=== PATIENT | female | born 1950 | race Caucasian/White ===

== ENCOUNTER 2016-07-14 14:43 | Inpatient (IN) | payer OTHER, MEDICARE ==
[~2016-07-14] VITALS: Ht 160 cm; Wt 72.0 kg
[~2016-07-14 14:43] MED LIST: FLUO-1 PO; LORA0.5T PO
[2016-07-14 15:18] VITALS: BP 148/98; PULSE 68; RESP 15; TEMP 97.6; O2SAT 95
[2016-07-14] MEDS ORDERED: CITA40TA4 PO (15:26)
[2016-07-14] MEDS ORDERED: LORA-373 PO (15:26)
--- NOTE | 2016-07-14 15:44 | PD ---
HPI Chief Complaint: Medical Clearance Time Seen by Provider: 15:42 Travel History International Travel<30 days: No Contact w/Intl Traveler<30days: No Traveled to known affect area: No History of Present Illness HPI Patient is a 66-year-old female who is brought into the emergency Department under Arizmendi act for possible suicidal ideations. Patient states that she just learned that her estranged in [place] this morning, she was outside of her home openly grieving, screaming, crying when the police came. She was told by the police that she had to be taken in for evaluation. Patient denies any suicidal or homicidal ideations stating that she is a Pentec[employer]al and suicide is against her yazdanism. Patient endorses drinking 4 shots of Phiilp Win today and smoking marijuana. She denies any physical complaints at this time. PFSH Past Medical History Anxiety: Yes Depression: Yes Cancer: Yes (colon cancer) Cardiovascular Problems: Yes COPD: Yes Past Surgical History Abdominal Surgery: Yes (COLECTOMY) Hysterectomy: Yes Neurologic Surgery: Yes (BACK ) Social History Alcohol Use: Yes (OCCASIONALLY) Tobacco Use: Yes (1 PPD) Substance Use: Yes (MARIJUANA) Allergies-Medications (Allergen,Severity, Reaction): Coded Allergies: Codeine (Verified Allergy, Unknown, 07/14/16) Contrast Media (Verified Allergy, Unknown, 07/14/16) Penicillin (Verified Allergy, Unknown, 07/14/16) Reported Meds & Prescriptions Reported Meds & Active Scripts Active Reported Citalopram (Citalopram Hydrobromide) 40 Mg Tab 40 Mg PO DAILY Lorazepam 0.5 Mg Tab 0.5 Mg PO BID PRN Review of Systems Except as stated in HPI: all other systems reviewed are Neg Psychiatric: Positive: Depression, Substance Abuse Physical Exam Narrative GENERAL: Thin, well-developed, alert elderly female. Resting comfortably in no acute distress, appears older than stated age. SKIN: Warm and dry. HEAD: Atraumatic. Normocephalic. EYES: Pupils equal and round. No scleral icterus. No injection or drainage. ENT: No nasal bleeding or discharge. Mucous membranes pink and moist. NECK: Trachea midline. No JVD. CARDIOVASCULAR: Regular rate and rhythm. No murmur appreciated. RESPIRATORY: No accessory muscle use. Clear to auscultation. Scattered expiratory wheezing. No retractions, no nasal flaring. GASTROINTESTINAL: Abdomen soft, non-tender, nondistended. Hepatic and splenic margins not palpable. MUSCULOSKELETAL: No obvious deformities. No clubbing. No cyanosis. No edema. NEUROLOGICAL: Awake and alert. No obvious cranial nerve deficits. Motor grossly within normal limits. Normal speech. PSYCHIATRIC: Depressed mood and affect Data Data Last Documented VS Vital Signs Date Time Temp Pulse Resp B/P Pulse Ox O2 Delivery O2 Flow Rate FiO2 07/14/16 15:18 97.6 68 15 148/98 95 Orders Complete Blood Count With Diff (07/14/16 15:13) Comprehensive Metabolic Panel (07/14/16 15:13) Urinalysis - C+S If Indicated (07/14/16 15:13) Drug Screen, Random Urine (07/14/16 15:13) Alcohol (Ethanol) (07/14/16 15:13) Psych Screen (07/14/16 15:13) Diet Regular Basic (07/14/16 Dinner) Labs Laboratory Tests Test 07/14/16 07/14/16 15:11 15:33 Urine Color YELLOW Urine Turbidity CLEAR Urine pH 5.5 Urine Specific [place] 1.013 Urine Protein 30 mg/dL Urine Glucose (UA) NEG mg/dL Urine Ketones NEG mg/dL Urine Occult Blood NEG Urine Nitrite NEG Urine Bilirubin NEG Urine Urobilinogen LESS THAN 2.0 MG/DL Urine Leukocyte Esterase NEG Urine WBC 1 /hpf Urine Squamous Epithelial 1 /hpf Cells Urine Mucus FEW /lpf Microscopic Urinalysis Comment CULT NOT INDICATED Urine Opiates Screen NEG Urine Barbiturates Screen NEG Urine Amphetamines Screen NEG Urine Benzodiazepines Screen NEG Urine Cocaine Screen NEG Urine Cannabinoids Screen POS White Blood Count 7.1 TH/MM3 Red Blood Count 5.39 MIL/MM3 Hemoglobin 15.3 GM/DL Hematocrit 46.6 % Mean Corpuscular Volume 86.3 FL Mean Corpuscular Hemoglobin 28.3 PG Mean Corpuscular Hemoglobin 32.8 % Concent Red Cell Distribution Width 14.2 % Platelet Count 257 TH/MM3 Mean Platelet Volume 9.0 FL Neutrophils (%) (Auto) 51.2 % Lymphocytes (%) (Auto) 39.9 % Monocytes (%) (Auto) 6.2 % Eosinophils (%) (Auto) 1.9 % Basophils (%) (Auto) 0.8 % Neutrophils # (Auto) 3.6 TH/MM3 Lymphocytes # (Auto) 2.8 TH/MM3 Monocytes # (Auto) 0.4 TH/MM3 Eosinophils # (Auto) 0.1 TH/MM3 Basophils # (Auto) 0.1 TH/MM3 CBC Comment DIFF FINAL Differential Comment Sodium Level 142 MEQ/L Potassium Level 3.5 MEQ/L Chloride Level 107 MEQ/L Carbon Dioxide Level 25.0 MEQ/L Anion Gap 10 MEQ/L Blood Urea Nitrogen 15 MG/DL Creatinine 0.64 MG/DL Estimat Glomerular Filtration 93 ML/MIN Rate Random Glucose 70 MG/DL Calcium Level 8.4 MG/DL Total Bilirubin 0.2 MG/DL Aspartate Amino Transf 15 U/L (AST/SGOT) Alanine Aminotransferase 22 U/L (ALT/SGPT) Alkaline Phosphatase 80 U/L Total Protein 7.4 GM/DL Albumin 3.8 GM/DL Ethyl Alcohol Level 181 MG/DL [facility] Medical Decision Making Medical Screen Exam Complete: Yes Emergency Medical Condition: Yes Interpretation(s) Vital Signs Date Time Temp Pulse Resp B/P Pulse Ox O2 Delivery O2 Flow Rate FiO2 07/14/16 15:18 97.6 68 15 148/98 95 Differential Diagnosis Mood disorder versus substance abuse versus psychosis versus intoxication versus other Narrative Course Patient is a 66-year-old female who was brought into the emergency Department under Arizmendi act. Patient was witnessed screaming and crying in her yard due to the recent of her estranged . She denies any suicidal or homicidal ideations. Patient endorses alcohol use as well as marijuana this morning. CBC is unremarkable, chemistry is unremarkable, tox screen was positive for THC , alcohol level is 181, urinalysis unremarkable. Patient's vital signs are stable. Patient is medically cleared for psychiatric evaluation at this time. Diagnosis Primary Impression: Medical clearance for psychiatric admission Condition: Stable Peace De La Rosa Jul 14, 2016 15:44
[2016-07-14 16:44] LABS: AUTOMATED NEUTROPHIL # 3.6 TH/MM3 (1.8-7.7); BASOPHIL # 0.1 TH/MM3 (0-0.2); BASOPHIL % 0.8 % (0.0-2.0); EOSINOPHIL # 0.1 TH/MM3 (0-0.4); EOSINOPHIL % 1.9 % (0.0-4.0); HEMATOCRIT 46.6 % (35.0-46.0); HEMO FLAGS DIFF FINAL; LYMPH % 39.9 % (9.0-44.0); LYMPHOCYTE # 2.8 TH/MM3 (1.0-4.8); MEAN CELL VOLUME 86.3 FL (80.0-100.0); MEAN CORPUSCULAR HEMOGLOBIN 28.3 PG (27.0-34.0); MEAN CORPUSCULAR HGB CONC 32.8 % (32.0-36.0); MONO % 6.2 % (0.0-8.0); NEUT % 51.2 % (16.0-70.0); PLATELET COUNT 257 TH/MM3 (150-450); RED BLOOD COUNT 5.39 MIL/MM3 (4.00-5.30); RED CELL DISTRIBUTION WIDTH 14.2 % (11.6-17.2); WHITE BLOOD COUNT 7.1 TH/MM3 (4.0-11.0)
[2016-07-14 16:55] LABS: AMPHETAMINE, URINE NEG (NEG); BARBITURATES, URINE NEG (NEG); BLOOD, URINE NEG (NEG); COCAINE, URINE NEG (NEG); COMMENT (UR) CULT NOT INDICATED; CULTURE IF INDICATED CULT NOT INDICATED; GLUCOSE,URINE NEG (NEG); KETONE, URINE NEG (NEG); MUCUS URINE FEW /lpf (OCC); NITRITE,URINE NEG (NEG); PH, URINE 5.5 (5.0-8.5); SQUAMOUS EPITHELIAL CELL URINE 1 /hpf (0-5); URINE COLOR YELLOW (YELLW/STRAW)
[2016-07-14 17:20] LABS: ALKALINE PHOSPHATASE 80 U/L (45-117); ALT (GPT) 22 U/L (10-53); ANION GAP 10 MEQ/L (5-15); AST (GOT) 15 U/L (15-37); BLOOD UREA NITROGEN 15 MG/DL (7-18); CHLORIDE 107 MEQ/L (98-107); GLOMERULAR FILTRATION RATE 93 ML/MIN (>89); POTASSIUM 3.5 MEQ/L (3.5-5.1); SODIUM (NA) 142 MEQ/L (136-145); TOTAL BILIRUBIN ADULT 0.2 MG/DL (0.2-1.0)
[2016-07-14 18:29] VITALS: BP_SYST 100; BP_SYST 188; BP_DIAS 49; BP_DIAS 81; PULSE 92; RESP 20; O2SAT 98
[2016-07-14] MEDS ORDERED: ACETAMINOPHEN 325 MG TAB PO ONE (18:45)
[2016-07-14 19:26] VITALS: BP 93/51; PULSE 92; RESP 18; O2SAT 94
[2016-07-14 20:42] VITALS: BP 122/57; PULSE 96; RESP 18; O2SAT 96
[2016-07-14] MEDS ORDERED: FLUMAZENIL 0.5 MG/5 ML VIAL IV PUSH PRN (21:45)
[2016-07-14] MEDS ORDERED: ALUMINUM/MAGNESIUM/SIMETH 30 ML CUP PO PRN (21:45)
[2016-07-14] MEDS ORDERED: BENZTROPINE MESYLATE 2 MG/2 ML VIAL IM PRN (21:45)
[2016-07-14] MEDS ORDERED: ACETAMINOPHEN 325 MG TAB PO PRN (21:45)
[2016-07-14] MEDS ORDERED: LORazepam 2 MG TAB PO PRN (21:45)
[2016-07-14] MEDS ORDERED: hydrOXYzine HCL 50 MG TAB PO PRN (21:45)
[2016-07-14] MEDS ORDERED: MAGNESIUM HYDROXIDE SUSP 30 ML CUP PO PRN (21:45)
[2016-07-14] MEDS ORDERED: BENZTROPINE MESYLATE 1 MG TAB PO PRN (21:45)
[2016-07-14] MEDS ORDERED: LORazepam 1 MG TAB PO PRN (21:45)
[2016-07-14] MEDS ORDERED: LORazepam 2 MG/ML VIAL IM PRN ×4 (21:45)
[2016-07-14] MEDS ORDERED: diphenhydrAMINE HCL 50 MG CAP PO PRN (21:45)
[2016-07-14 22:00] VITALS: BP 110/67; PULSE 84; RESP 18; O2SAT 93
[2016-07-14 23:20] VITALS: BP 128/72; PULSE 83; RESP 18; TEMP 97.8; O2SAT 94
[2016-07-15 06:31] VITALS: BP 140/71; PULSE 108; RESP 19; TEMP 97.6; O2SAT 94
[2016-07-15 07:43] LABS: LDL CHOLESTEROL 76 MG/DL (0-99)
[2016-07-15] MEDS ORDERED: FOLIC ACID 1 MG TAB PO SCH (09:00)
[2016-07-15] MEDS ORDERED: REMOVE OLD PATCH T-DERMAL SCH (09:00)
[2016-07-15] MEDS ORDERED: CITALOPRAM HYDROBROMIDE 40 MG TAB PO SCH (09:00)
[2016-07-15] MEDS ORDERED: NICOTINE 21 MG/24 HR PATCH T-DERMAL SCH (09:00)
[2016-07-15] MEDS ORDERED: THIAMINE HCL 100 MG TAB PO SCH (09:00)
[2016-07-15] MEDS ORDERED: ACETAMINOPHEN 325 MG TAB PO PRN (10:15)
--- NOTE | 2016-07-15 11:38 | HHI.HP ---
Provisional Diagnosis Admission Date Jul 14, 2016 at 21:42 [place] I. Alcohol abuse with alcohol-induced mood disorder F 10.14, alcohol intoxication f 10.129 Certification of Person's Competence To Provide Express and Informed Consent I have personally examined Micki Corona , a person being served at [facility] on, Jul 15, 2016 11:25. Express and informed consent means consent voluntarily given in writing, by a competent person, after sufficient explanation and disclosure of the subject matter involved to enable the person to make a knowing and willful decision without any element of force, fraud, deceit, duress, or other form of constraint or coercion. This person is 18 years of age or older, is not now known to be incompetent to consent to treatment with a guardian advocate, and does not have a health care surrogate or proxy currently making medical treatment decisions. I have found this person to be one of the following: []x Competent to provide express and informed consent, as defined above, for voluntary admission to this facility and is competent to provide express and informed consent for treatment. He/she has the consistent capacity to make well reasoned, willful, and knowing decisions concerning his or her medical or mental health treatment. The person fully and consistently understands the purpose of the admission for examination/placement and is fully capable of personally exercising all rights assured [place] [] Incompetent to provide express and informed consent to voluntary admission, and this is incompetent to provide express and informed consent to treatment. The person must be transferred to involuntary status and a petition for a guardian advocate filed with the Circuit Court. [] Refusing to provide express and informed consent to voluntary admission but is competent to provide express and informed consent for treatment. The person must be discharged or transferred to involuntary status. Form shall be completed within 24 hours of a person's arrival at the receiving facility and filed in the clinical record of each person: 1. Admitted on a voluntary basis 2. Permitted to provide express and informed consent to his/her own treatment 3. Allowed to transfer from involuntary to voluntary status 4. Prior to permitting a person to consent to his or her own treatment after having been previously found incompetent to consent to treatment. History of Present Illness Capacity: Has Capacity HPI Patient is 66-year-old white female who comes here under Arizmendi act by the [place] [employer] dated 2016 at 2100 hrs. stating Micki is upset over recent deaths of her 2 children and Micki denies being suicidal a neighbor provided sworn statements advising she said she wanted to kill herself. Patient seen and screened in the ED urine toxicology positive for marijuana the blood alcohol level 181. At the present time patient sitting quietly in her room nurse Millie present throughout the session patient acknowledges getting drunk. Was the first episode in a number of months. Patient acknowledges misuse of alcohol on an infrequent no excessive basis. She denies detox or rehabilitation her legal issues related to drinking though she does acknowledge blacking out with that. She states she uses marijuana on a frequent basis. Patient states was grieving over the recent of her estranged out of state. She was notified of the day before by her son of his . This comes on top of the of her granddaughter who she help deliver in a motor vehicle accident her daughter who of drug related issues and a son who of drug related issues. The patient adamantly denies suicidality homicidality voices or visions with this. Patient was screened here number months ago for alcohol-related issues the blood alcohol level of almost 300 on 06/22/16. Patient denies any prior inpatient psychiatric care. Patient is under the care of Dr. Romo locally which she sees on a regular basis does have a good relationship with him a does prescribe her Celexa and Ativan. 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 At the present time patient does not meet Arizmendi criteria. I will lift the Arizmendi act. Allow the patient to be discharged to herself. No Rx by me. She may follow-up with Dr. Romo. Also strong recommendation AA meeting strong recommendation NA meeting strong recommendation voluntary assessment substance abuse through [facility] also strong recommendation for grief counseling perhaps through one of the hospice organizations locally Review of Systems Except as stated in HPI: all other systems reviewed are Neg Past Psych History Psychological trauma history Recent of 2 of her children one granddaughter and her estranged Violence risk - others (6 mos) low Violence risk - self (6 mos) Low Substance Abuse History Drugs/Alcohol past 12 months Active alcoholic marijuana Past Family Social History Coded Allergies: Codeine (Verified Allergy, Unknown, 07/14/16) Contrast Media (Verified Allergy, Unknown, 07/14/16) Penicillin (Verified Allergy, Unknown, 07/14/16) Past Medical History Medically cleared ED Reported Medications Citalopram 40 Mg Tab40 Mg PO DAILY #30 TAB Ref 0 07/14/16 Lorazepam 0.5 Mg Tab0.5 Mg PO BID PRN (ANXIETY) Ref 0 07/14/16 Current Medications Medications (Trade) Dose Ordered Sig/Taco Route Start Time Stop Time Status Last Admin (CeleXA) 40 mg DAILY PO 07/15/16 09:00 07/15/16 09:22 (Benadryl) 50 mg HS PRN PO 07/14/16 21:45 (Tylenol) 650 mg Q4H PRN PO 07/14/16 21:45 07/14/16 23:35 (Milk Of Magnesia Liq) 30 ml DAILY PRN PO 07/14/16 21:45 (Mag-Al Plus Susp Liq) 30 ml Q6H PRN PO 07/14/16 21:45 (Habitrol 21 Mg Patch.24 Hr) 1 patch DAILY T-DERMAL 07/15/16 09:00 (Atarax) 50 mg Q6H PRN PO 07/14/16 21:45 (Cogentin) 1 mg Q12H PRN PO 07/14/16 21:45 (Cogentin Inj) 1 mg Q12H PRN IM 07/14/16 21:45 (Ativan) 1 mg Q4H PRN PO 07/14/16 21:45 (Ativan Inj) 1 mg Q4H PRN IM 07/14/16 21:45 (Ativan) 2 mg Q2H PRN PO 07/14/16 21:45 07/14/16 23:36 (Ativan Inj) 2 mg Q2H PRN IM 07/14/16 21:45 (Ativan Inj) 2 mg Q1H PRN IM 07/14/16 21:45 (Ativan Inj) 2 mg Q15M PRN IM 07/14/16 21:45 Miscellaneous Information 1 DAILY T-DERMAL 07/15/16 09:00 (Vitamin B1) 100 mg DAILY PO 07/15/16 09:00 07/15/16 09:22 (Folate) 1 mg DAILY PO 07/15/16 09:00 07/15/16 09:22 (Tylenol) 650 mg Q4H PRN PO 07/15/16 10:15 Family History Some history substance abuse issues Social History Patient appears to be episodic binge drinker, chronic marijuana user Patient's Strengths (min. 2) Patient verbal intelligence cooperative irritable [facility] Physical Exam Patient seen screen in ED exam reviewed and agreed with vital signs blood pressure 140/71 pulse 1 await respirations 19 Vital Signs Vital Signs Date Time Temp Pulse Resp B/P Pulse Ox O2 Delivery O2 Flow Rate FiO2 07/15/16 06:31 97.6 108 19 140/71 94 07/14/16 22:00 Room Air Mental Status Examination Alert oriented white female poor dentition noted calm cooperative with me with fair eye contact Appearance Somewhat disheveled with poor dentition patient missing for lower central incisors Speech: Unremarkable Orientation: x3 Memory: Unremarkable Thought Process: Logical Thought Content: Unremarkable Hallucination Type: None Attention and Concentration: Good Suicidal Ideation: No Previous Suicide Attempts: No Homicidal Ideation: No Previous Homicide Attempts: No Insight: Fair Judgement: WNL Affect: Other (slight increase range and intensity) Mood: Sad Motor Activity: Normal gait Assessment & Plan Problem List: (1) Alcohol abuse with alcohol-induced mood disorder ICD Code: F10.14 (2) Alcohol intoxication ICD Code: F10.129 Assessment & Plan Estimated LOS: days patient does not meet Arizmendi criteria will lift Arizmendi act allow patient discharged herself. No Rx by me. She may continue her schedule medications per Dr. Jaeger, follow-up with Dr. Jaeger. Refer also to the grief counseling through a local hospice of her choice. Refer also to AA and NA , refer also to [facility] act outpatient substance abuse evaluation Discharge Planning See above Request HC Surrog/Guard Advoc?: No Luis Schrader MD Jul 15, 2016 11:38
--- NOTE | 2016-07-15 11:47 | HHI.DS ---
Psychiatry Discharge Summary Inpatient Psychiatric care?: Yes Advance Directive: Yes Mental Health AdvanceDirective: No (refused) Health Care Proxy: No (refused) Admission Admission Date Jul 14, 2016 at 21:42 Admission Diagnosis: (1) Alcohol abuse with alcohol-induced mood disorder ICD Code: F10.14 (2) Alcohol intoxication ICD Code: F10.129 Brief History Patient is 66-year-old white female who comes here under Arizmendi act by the [facility] [employer] [facility] dated 2016 at 2100 hrs. stating Micki is upset over recent deaths of her 2 children and Micki denies being suicidal a neighbor provided sworn statements advising she said she wanted to kill herself. Patient seen and screened in the ED urine toxicology positive for marijuana the blood alcohol level 181. At the present time patient sitting quietly in her room nurse Millie present throughout the session patient acknowledges getting drunk. Was the first episode in a number of months. Patient acknowledges misuse of alcohol on an infrequent no excessive basis. She denies detox or rehabilitation her legal issues related to drinking though she does acknowledge blacking out with that. She states she uses marijuana on a frequent basis. Patient states was grieving over the recent of her estranged out of state. She was notified of the day before by her son of his . This comes on top of the of her granddaughter who she help deliver in a motor vehicle accident her daughter who of drug related issues and a son who of drug related issues. The patient adamantly denies suicidality homicidality voices or visions with this. Patient was screened here number months ago for alcohol-related issues the blood alcohol level of almost 300 on 06/22/16. Patient denies any prior inpatient psychiatric care. Patient is under the care of Dr. Romo locally which she sees on a regular basis does have a good relationship with him a does prescribe her Celexa and Ativan. 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 At the present time patient does not meet Arizmendi criteria. I will lift the Arizmendi act. Allow the patient to be discharged to herself. No Rx by me. She may follow-up with Dr. Romo. Also strong recommendation AA meeting strong recommendation NA meeting strong recommendation voluntary assessment substance abuse through [facility] also strong recommendation for grief counseling perhaps through one of the hospice organizations locally Tobacco Use In Past 30 Days: 5 or More Cigarettes/Day Alcohol Use: 2-4 Times Per Month Hospital Course Please see dictation under brief history above patient does not be Arizmendi criteria will lift Arizmendi act patient to be discharged to herself no Rx by me follow-up with Dr. Jaeger also referrals to AA/NA, hospice for grief counseling , stroke [facility] act outpatient substance abuse assessment Results Blood Pressure 140 / 71 Vital Signs Date Time Temp Pulse Resp B/P Pulse Ox O2 Delivery O2 Flow Rate FiO2 07/15/16 06:31 97.6 108 19 140/71 94 07/14/16 22:00 Room Air Laboratory Tests Test 07/14/16 07/14/16 15:11 15:33 Urine Protein 30 mg/dL (NEG-TRACE) Urine Mucus FEW /lpf (OCC) Urine Cannabinoids Screen POS (NEG) Red Blood Count 5.39 MIL/MM3 (4.00-5.30) Hematocrit 46.6 % (35.0-46.0) Random Glucose 70 MG/DL (74-106) Calcium Level 8.4 MG/DL (8.5-10.1) Ethyl Alcohol Level 181 MG/DL (0-5) Laboratory Results Test 07/15/16 06:49 Triglycerides Level 89 MG/DL (42-150) Cholesterol Level 147 MG/DL (120-200) LDL Cholesterol 76 MG/DL (0-99) HDL Cholesterol 53.0 MG/DL (40.0-60.0) Summary of Procedures None done Pending results at discharge: No Medications # of Antipsychotic meds at D/C: 0 Approp Antipsych med options 1 - Minimum of three failed multiple trials of monotherapy. 2 - Documented plan to taper to monotherapy due to previous use of multiple meds OR cross-taper in progress at D/C. 3 - Documentation of augmentation of Clozapine. 4 - Justification other than those listed in allowable values 1-3, document here : Discharge Discharge Date: Jul 15, 2016 Discharge Diagnosis: (1) Alcohol abuse with alcohol-induced mood disorder Diagnosis: Principal ICD Code: F10.14 (2) Alcohol intoxication Diagnosis: Secondary ICD Code: F10.129 Mental Status Exam at Disch Alert oriented thin slender slightly disheveled white female she is normal active her mood is dysphoric, affect show slight increase range and intensity. Speech rate and rhythm within normal limits though no formal thought disorders. No auditory or visual hallucinations though delusions. Insight and judgment is fair cognition grossly intact Pt Condition on Discharge: Stable Discharge Disposition: Discharge Home Discharge Instructions Diet Instructions: As Tolerated, No Restrictions Activities you can perform: Regular-No Restrictions Scheduled Appointment: Private Psychiatrist (Dr. Romo) Discharge Time > 30 minutes Discharge/Advance Care Plan Health Problems: (1) Alcohol abuse with alcohol-induced mood disorder (2) Alcohol intoxication Goals to promote your health * To prevent worsening of your condition and complications * To maintain your health at the optimal level Directions to meet your goals Take your medications as prescribed Follow your dietary instruction Follow activity as directed Keep your appointments as scheduled Take your immunizations and boosters as scheduled If your symptoms worsen call your PCP, if no PCP go to Urgent Care Center or Emergency Room For 17/01 questions related to your inpatient stay or results of tests pending at discharge, please contact Dr. Luis Schrader at Smoking is Dangerous to Your Health. Avoid second hand smoking Luis Schrader MD Jul 15, 2016 11:47
[2016-07-15 16:00] LABS: HEMOGLOBIN Ao 84.9 %; HEMOGLOBIN F 0.8 %; HEMOGLOBIN LA1C 2.2 %; HEMOGLOBIN P3 4.1 %
== END 2016-07-15 13:35 | disposition home or self-care (01) | DRG 897 ==
LOC: NEDAMB 14:43 → NEDA 21:42 → H250 23:10
PROVIDERS: ADMIT Psychiatry & Neurology Psychiatry; ATTEND Psychiatry & Neurology Psychiatry
DX: F10.14 Alcohol abuse with alcohol-induced mood disorder (principal); J44.9 Chronic obstructive pulmonary disease, unspecified; F10.129 Alcohol abuse with intoxication, unspecified; Y90.6 Blood alcohol level of 120-199 mg/100 ml; F12.90 Cannabis use, unspecified, uncomplicated; Z63.8 Other specified problems related to primary support group; F17.210 Nicotine dependence, cigarettes, uncomplicated; Z85.038 Personal history of other malignant neoplasm of large intestine
CPT/HCPCS: 80053; 80061; 80307; 80320; 81001; 83036; 85025; 99285

== ENCOUNTER 2016-12-29 08:19 | Emergency (ER) | payer MEDICARE, OTHER ==
[~2016-12-29] VITALS: Ht 162.6 cm; Wt 68.0 kg
[~2016-12-29 08:19] MED LIST changes: +CITA40TA4 PO; -FLUO-1 PO; +LORA-373 PO; -LORA0.5T PO
[2016-12-29 08:25] VITALS: BP 115/72; PULSE 92; RESP 20; TEMP 98; O2SAT 98
[2016-12-29] MEDS ORDERED: LORA1TAB12 PO (08:34)
[2016-12-29] MEDS ORDERED: ONDANSETRON HCL 4 MG/2 ML VIAL IV PUSH ONE (09:00)
[2016-12-29] MEDS ORDERED: SODIUM CHLORIDE 0.9% FLUSH 10 ML FLUSH IV FLUSH PRN (09:00)
[2016-12-29 09:03] VITALS: RESP 18; O2SAT 97
--- NOTE | 2016-12-29 09:09 | PD ---
HPI Chief Complaint: Abdominal Pain Time Seen by Provider: 08:49 Travel History International Travel<30 days: No Contact w/Intl Traveler<30days: No Traveled to known affect area: No History of Present Illness HPI 66yo F with PMH of PTSD, anxiety, colon CA presents to the ED with multiple complaints today. States she was at [facility] 3 or 4 days ago and was diagnosed with pneumonia and given an antibiotic that she has been taking. Pt does not know which antibiotic it was and did not bring it. States she felt better and then worst yesterday. +Cough, +Midsternal chest pain and nausea. + Mild sob intermittently. Pt also started having abdominal pain yesterday, more on left side. Pt also with bilateral calf pain and states she had a history of DVT and PE when she was years ago. PFSH Past Medical History Autoimmune Disease: No Anxiety: Yes Depression: Yes High Cholesterol: Yes Chemotherapy: No Endocrine: No Genitourinary: No Immune Disorder: No Musculoskeletal: Yes (right knee, quad tendon removed, ruptured discs) Neurologic: No Reproductive: No Respiratory: Yes Radiation Therapy: No Sickle Cell Disease: No Thyroid Disease: No Past Surgical History Abdominal Surgery: Yes (colon, bowel resections) AICD: No Arteriovenous Shunt: No Cardiac Surgery: No Ear Surgery: No Endocrine Surgery: No Eye Surgery: No Genitourinary Surgery: No Gynecologic Surgery: Yes (hysterectomy) Hysterectomy: Yes Insulin Pump: No Joint Replacement: No Neurologic Surgery: Yes (BACK ) Oral Surgery: Yes (teeth removed, bone removed) Pacemaker: No Thoracic Surgery: No Social History Alcohol Use: Yes (OCCASIONALLY) Tobacco Use: Yes (1 PPD) Substance Use: Yes (marijuana, two joints per day, daily) Allergies-Medications (Allergen,Severity, Reaction): Coded Allergies: Reglan (Verified Allergy, Severe, Hallucinations, 12/29/16) Codeine (Verified Allergy, Unknown, 07/14/16) Contrast Media (Verified Allergy, Unknown, 07/14/16) Penicillin (Verified Allergy, Unknown, 07/14/16) Reported Meds & Prescriptions Reported Meds & Active Scripts Active Reported Lorazepam 1 Mg Tab 1 Mg PO Q6H PRN Citalopram (Citalopram Hydrobromide) 40 Mg Tab 40 Mg PO DAILY Review of Systems Except as stated in HPI: all other systems reviewed are Neg Physical Exam Narrative GENERAL: 66yo F in mild distress. SKIN: Focused skin assessment warm/dry. HEAD: Atraumatic. Normocephalic. NECK: Trachea midline. No JVD. CARDIOVASCULAR: Regular rate and rhythm. No murmur appreciated. RESPIRATORY: No accessory muscle use. Bibasilar crackles. CHEST WALL: Midsternal palpation causes nausea. GASTROINTESTINAL: Abdomen soft, +TTP LUQ. LLQ. No rebound tenderness or guarding. MUSCULOSKELETAL: No obvious deformities. No clubbing. No cyanosis. No edema. Bilateral calf soft. NEUROLOGICAL: Awake and alert. No obvious cranial nerve deficits. Motor grossly within normal limits. Normal speech. PSYCHIATRIC: Appropriate mood and affect; insight and judgment normal. Data Data Last Documented VS Vital Signs Date Time Temp Pulse Resp B/P Pulse Ox O2 Delivery O2 Flow Rate FiO2 12/29/16 13:30 97.8 76 17 118/81 99 Room Air Orders Electrocardiogram (12/29/16 ) Complete Blood Count With Diff (12/29/16 09:00) Comprehensive Metabolic Panel (12/29/16 09:00) Lipase (12/29/16 09:00) Lactic Acid (12/29/16 09:00) Prothrombin Time / Inr (Pt) (12/29/16 09:00) Act Partial Throm Time (Ptt) (12/29/16 09:00) Iv Access Insert/Monitor (12/29/16 09:00) Ecg Monitoring (12/29/16 09:00) Oximetry (12/29/16 09:00) Sodium Chloride 0.9% Flush (Ns Flush) (12/29/16 09:00) Ondansetron Inj (Zofran Inj) (12/29/16 09:00) Troponin I (12/29/16 09:00) D-Dimer (12/29/16 09:00) Ct Abd/Pel W/O Iv Contrast (12/29/16 ) Chest, Single Ap (12/29/16 ) Us Leg Venous Doppler Bilat (12/29/16 ) Ventilation & Perfusion Scan (12/29/16 ) Lorazepam Inj (Ativan Inj) (12/29/16 13:00) Labs Laboratory Tests Test 12/29/16 09:00 White Blood Count 7.3 TH/MM3 Red Blood Count 5.14 MIL/MM3 Hemoglobin 13.9 GM/DL Hematocrit 43.5 % Mean Corpuscular Volume 84.6 FL Mean Corpuscular Hemoglobin 27.1 PG Mean Corpuscular Hemoglobin 32.1 % Concent Red Cell Distribution Width 13.9 % Platelet Count 245 TH/MM3 Mean Platelet Volume 8.8 FL Neutrophils (%) (Auto) 78.5 % Lymphocytes (%) (Auto) 11.8 % Monocytes (%) (Auto) 7.1 % Eosinophils (%) (Auto) 1.8 % Basophils (%) (Auto) 0.8 % Neutrophils # (Auto) 5.8 TH/MM3 Lymphocytes # (Auto) 0.9 TH/MM3 Monocytes # (Auto) 0.5 TH/MM3 Eosinophils # (Auto) 0.1 TH/MM3 Basophils # (Auto) 0.1 TH/MM3 CBC Comment DIFF FINAL Differential Comment Prothrombin Time 12.2 SEC Prothromb Time International 1.1 RATIO Ratio Activated Partial 26.9 SEC Thromboplast Time D-Dimer Quantitative (PE/DVT) 1.92 MG/L FEU Sodium Level 140 MEQ/L Potassium Level 3.8 MEQ/L Chloride Level 107 MEQ/L Carbon Dioxide Level 22.5 MEQ/L Anion Gap 11 MEQ/L Blood Urea Nitrogen 16 MG/DL Creatinine 0.65 MG/DL Estimat Glomerular Filtration 92 ML/MIN Rate Random Glucose 103 MG/DL Lactic Acid Level 1.1 mmol/L Calcium Level 8.8 MG/DL Total Bilirubin 0.3 MG/DL Aspartate Amino Transf 11 U/L (AST/SGOT) Alanine Aminotransferase 17 U/L (ALT/SGPT) Alkaline Phosphatase 67 U/L Troponin I LESS THAN 0.02 NG/ML Total Protein 6.3 GM/DL Albumin 3.1 GM/DL Lipase 237 U/L [facility] Medical Decision Making Medical Screen Exam Complete: Yes Emergency Medical Condition: Yes Interpretation(s) EKG: NSR 65bpm. Normal axis. No ST segment elevation or depression. Differential Diagnosis Anxiety vs. pneumonia that failed outpatient therapy vs. ACS vs. colitis Narrative Course 66yo F with multiple complaints. Labs reviewed, no leukocytosis. Lactic acid normal at 1.1. Troponin negative. D-dimer is elevated at 1.92. Pt is allergic to IV contrast so will do VQ scan to r/o PE. US bilateral lower ext showed no DVT. CTa/p showed no acute abdominal/pelvic pathology. CXR showed significant change in chest with coarse interstitial changes in both lungs. Considerations would include both an acute inflammatory process and progressing fibrosis. Pt has no fever or leukocytosis. This is likely progressing fibrosis. Will have pt follow up with pulmonology as outpatient. Pt is saturating at 99% on RA now. Pt reevaluated at bedside after ativan and zofran and pt feels much better. 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 VQ scan showed bilateral diffuse ventilatory defects characteristic of COPD and patient' s chronic interstitial lung disease. There are matched defects in right lung. No mismatch defects. Low probability for PE. Vital sign has been stable. Pt has been observed in the ED and has been lying comfortably in bed. Pt instructed to follow up with PMD and possibly pulmonary referral for chronic interstitial lung disease. Based on patient's clinical exam, labs and imaging, do not think pt is having pneumonia but rather chronic interstitial lung disease and should follow with pulmonology as outpatient. Diagnosis Primary Impression: Chronic interstitial lung disease Referrals: Stacey Ambrosio MD call for appointment Chronic interstitial lung disease Patient Instructions: General Instructions Departure Forms: Tests/Procedures Additional Instructions: Please follow up with your PMD or ammonia worker regarding your chronic interstitial lung disease. Return to the ED if symptoms worsen. Med/Other Pt SpecificInfo: Prescription(s) given Scripts Albuterol 18 GM Inh (Ventolin Hfa 18 GM Inh)90 Mcg/Act Aer2 Puff INH Q4H PRN ( SHORTNESS OF BREATH) #1 INHALER Ref 0 Prov:Michelle Law DO 12/29/16 Disposition: 01 DISCHARGE HOME Condition: Stable Michelle Law DO Dec 29, 2016 09:09
--- NOTE | 2016-12-29 09:38 | RADRPT ---
EXAM DATE/TIME: 12/29/2016 09:17 [facility] COMPARISON: No previous studies available for comparison. INDICATIONS : Abdominal pain, muscle cramping and shortness of breath. ORAL CONTRAST: No oral contrast ingested. RADIATION DOSE: 9.96 CTDIvol (mGy) MEDICAL HISTORY : Carcinoma, colon. SURGICAL HISTORY : Hysterectomy. Bowel resection. ENCOUNTER: Initial ACUITY: 1 day PAIN SCALE: 6/10 LOCATION: Left lower quadrant TECHNIQUE: Volumetric scanning of the abdomen and pelvis was performed. Using automated exposure control and ad justment of the mA and/or kV according to patient size, radiation dose was kept as low as reasonably achievable to obtain optimal diagnostic quality images. DICOM format image data is available electro nically for review and comparison. The lack of IV contrast limits the diagnosis for certain organ pat hology. FINDINGS: LOWER LUNGS: There is chronic bilateral interstitial lung disease with scattered infiltrates in both lung bases. S mall pericardial effusion. LIVER: Homogeneous density without lesion. There is no dilation of the biliary tree. No gallbladder. SPLEEN: Normal size without lesion. PANCREAS: Within normal limits. KIDNEYS: Normal in size and shape. There is no mass, stone, or hydronephrosis. There is a cyst along the midp ole left kidney measuring 2.6 cm. ADRENAL GLANDS: Within normal limits. VASCULAR: There is no aortic aneurysm. Atherosclerotic changes. BOWEL/MESENTERY: The stomach, small bowel, and colon demonstrate no acute abnormality. There is no free intraperitone al air or fluid. No inflammatory changes. ABDOMINAL WALL: Within normal limits. RETROPERITONEUM: There is no lymphadenopathy. BLADDER: No wall thickening or mass. REPRODUCTIVE: Within normal limits. INGUINAL: There is no lymphadenopathy or hernia. MUSCULOSKELETAL: Within normal limits for patient age. CONCLUSION: 1. Scattered interstitial infiltrates in both lung bases. 2. There is a cyst on the midpole of the left kidney measuring 2.6 cm. 3. No acute abdominal/pelvic pathology. Bharath Sharp MD on December 29, 2016 at 9:32 Board Certified Radiologist. This report was verified electronically.
[2016-12-29 09:39] LABS: AUTOMATED NEUTROPHIL # 5.8 TH/MM3 (1.8-7.7); BASOPHIL # 0.1 TH/MM3 (0-0.2); BASOPHIL % 0.8 % (0.0-2.0); EOSINOPHIL # 0.1 TH/MM3 (0-0.4); EOSINOPHIL % 1.8 % (0.0-4.0); HEMATOCRIT 43.5 % (35.0-46.0); HEMO FLAGS DIFF FINAL; LYMPH % 11.8 % (9.0-44.0); LYMPHOCYTE # 0.9 TH/MM3 (1.0-4.8); MEAN CELL VOLUME 84.6 FL (80.0-100.0); MEAN CORPUSCULAR HEMOGLOBIN 27.1 PG (27.0-34.0); MEAN CORPUSCULAR HGB CONC 32.1 % (32.0-36.0); MONO % 7.1 % (0.0-8.0); NEUT % 78.5 % (16.0-70.0); PLATELET COUNT 245 TH/MM3 (150-450); RED BLOOD COUNT 5.14 MIL/MM3 (4.00-5.30); RED CELL DISTRIBUTION WIDTH 13.9 % (11.6-17.2); WHITE BLOOD COUNT 7.3 TH/MM3 (4.0-11.0)
[2016-12-29 09:50] LABS: ALT (GPT) 17 U/L (10-53); ANION GAP 11 MEQ/L (5-15); AST (GOT) 11 U/L (15-37); BICARBONATE 22.5 MEQ/L (21.0-32.0); BLOOD UREA NITROGEN 16 MG/DL (7-18); CHLORIDE 107 MEQ/L (98-107); GLOMERULAR FILTRATION RATE 92 ML/MIN (>89); POTASSIUM 3.8 MEQ/L (3.5-5.1); SODIUM (NA) 140 MEQ/L (136-145)
[2016-12-29 09:51] LABS: APTT (PATIENT) 26.9 SEC (24.3-30.1); INTERNATIONAL NORMALIZED RATIO 1.1 RATIO; PROTHROMBIN TIME - PATIENT 12.2 SEC (9.8-11.6)
[2016-12-29 09:54] LABS: ALKALINE PHOSPHATASE 67 U/L (45-117); TOTAL BILIRUBIN ADULT 0.3 MG/DL (0.2-1.0)
--- NOTE | 2016-12-29 10:01 | RADRPT ---
EXAM DATE/TIME: 12/29/2016 09:25 [facility] COMPARISON: CHEST SINGLE AP, June 22, 2016, 15:54. INDICATIONS : Shortness of breath with chest pains, nausea and vomiting.. MEDICAL HISTORY : None. SURGICAL HISTORY : ENCOUNTER: Initial ACUITY: 1 day PAIN SCORE: 7/10 LOCATION: Left chest FINDINGS: Course interstitial changes are present in both lungs with normal heart size. There is minimal blunt ing of the right costophrenic sulcus. The portion of the bony skeleton visualized is unremarkable. CONCLUSION: Significant change in the appearance of the chest with coarse interstitial changes in both lungs the small right pleural effusion. Considerations would include both an acute inflammatory process and pr ogressing fibrosis. Cristian Rahman MD FACR on December 29, 2016 at 9:57 Board Certified Radiologist. This report was verified electronically.
[2016-12-29 10:23] VITALS: BP 120/73; PULSE 72; RESP 17; TEMP 97.8; O2SAT 97
--- NOTE | 2016-12-29 10:26 | RADRPT ---
EXAM DATE/TIME: 12/29/2016 09:51 [facility] COMPARISON: No previous studies available for comparison. INDICATIONS : Bilateral leg pain. MEDICAL HISTORY : Hypercholesterolemia. Dyspnea. Ruptured discs. PTSD. Anxiety. Substance use. SURGICAL HISTORY : Hysterectomy. Back surgery. Oral surgery, bone and teeth removed. Colon resection. Quad tendon repai r. Right knee. Blood transfusions. ENCOUNTER: Initial ACUITY: 2 day PAIN SCORE: 7/10 LOCATION: Bilateral leg. TECHNIQUE: Venous ultrasound of the left and right leg was performed from the inguinal ligament to the proximal calf. Real-time, color Doppler and spectral tracing, compression and augmentation techniques were us ed. FINDINGS: RIGHT LEG: There is normal compressibility of the deep venous system from the inguinal region to the proximal ca lf. No echogenic clot is seen in the lumen of the common femoral, femoral, popliteal, and posterior tibial veins. There is a normal response of the venous system to proximal and distal augmentation an d respiration. LEFT LEG: There is normal compressibility of the deep venous system from the inguinal region to the proximal ca lf. No echogenic clot is seen in the lumen of the common femoral, femoral, popliteal, and posterior tibial veins. There is a normal response of the venous system to proximal and distal augmentation an d respiration. CONCLUSION: No evidence of DVT. Bharath Sharp MD on December 29, 2016 at 10:23 Board Certified Radiologist. This report was verified electronically.
--- NOTE | 2016-12-29 10:54 | EKG ---
Date Performed: 12/29/2016 Time Performed: 08:55:39 PTAGE: 66 years EKG: Sinus rhythm WITH SHORT MN INTERVAL BORDERLINE ECG PREVIOUS TRACING : 12/29/2016 08.53 DOCTOR: Sonny cOhoa Interpretating Date/Time 12/31/2016 09:19:49
[2016-12-29 11:48] VITALS: BP 123/83; PULSE 87; RESP 17; TEMP 98.1; O2SAT 97
[2016-12-29] MEDS ORDERED: LORazepam 2 MG/ML VIAL IV PUSH ONE (13:00)
[2016-12-29 13:30] VITALS: BP 118/81; PULSE 76; RESP 17; TEMP 97.8; O2SAT 99
--- NOTE | 2016-12-29 13:56 | RADRPT ---
EXAM DATE/TIME: 12/29/2016 12:40 [facility] COMPARISON: CHEST SINGLE AP, December 29, 2016, 9:25. INDICATIONS : Short of breath and midsternal chest pain. DOSE: 8.1 mCi Tc99m MAA IV 0.59 mCi Tc99m DTPA aerosol MEDICAL HISTORY : Chronic obstructive pulmonary disease. Carcinoma, colon. Pneumonia and smoker. SURGICAL HISTORY : Colon resection. Hysterectomy. ENCOUNTER: Initial ACUITY: 1 day PAIN SCALE: 3/10 LOCATION: Bilateral chest TECHNIQUE: Following five minutes of tidal breathing of DTPA aerosol, planar images of the lungs were performed in eight projections. The patient was then injected with MAA, and eight-view perfusion scan was perf ormed. FINDINGS: There are multiple ventilatory defects throughout both lung saha on the ventilation scan. The perfusion lung scan demonstrates a matched defect involving the right upper lung and right lower lung. No definite mismatched defects are demonstrated. The perfusion scan is better than the ventilat ion scan.. CONCLUSION: 1. Multiple bilateral diffuse ventilatory defects characteristic of COPD and patient's chronic inters titial lung disease. 2. There are matched defects in the right lung. No mismatch defects are demonstrated. This is a low p robability for PE. Bharath Sharp MD on December 29, 2016 at 13:51 Board Certified Radiologist. This report was verified electronically.
[2016-12-29] MEDS ORDERED: VENTAER INH (15:29)
[2016-12-29 15:43] VITALS: BP 122/84; TEMP 97.7
== END 2016-12-29 15:46 | disposition home or self-care (01) ==
LOC: NEPC 08:19
DX: J84.9 Interstitial pulmonary disease, unspecified (principal); Z85.038 Personal history of other malignant neoplasm of large intestine; F43.10 Post-traumatic stress disorder, unspecified; E78.00 Pure hypercholesterolemia, unspecified; F17.210 Nicotine dependence, cigarettes, uncomplicated; F12.10 Cannabis abuse, uncomplicated
CPT/HCPCS: 71010; 74176; 78582; 80053; 83605; 83690; 84484; 85025; 85379; 85610; 85730; 93005; 93970; 96374; 96375; 99285; A9540; A9567; J2060; J2405

== ENCOUNTER 2017-01-03 04:37 | Emergency (ER) | payer MEDICARE ==
[~2017-01-03] VITALS: Ht 167.6 cm; Wt 68.0 kg
[~2017-01-03 04:37] MED LIST changes: -LORA-373 PO; +LORA1TAB12 PO; +VENTAER INH
[2017-01-03 04:38] VITALS: BP 138/104; PULSE 87; RESP 20; TEMP 98; O2SAT 97
[2017-01-03 05:00] VITALS: BP 136/65; PULSE 81; RESP 18; O2SAT 98
[2017-01-03] MEDS ORDERED: ONDANSETRON HCL 4 MG/2 ML VIAL ONE (05:04)
[2017-01-03] MEDS ORDERED: SODIUM CHLOR 0.9% 1000 ML INJ 1,000 ML IV SCH (05:08)
--- NOTE | 2017-01-03 05:08 | PD ---
HPI Chief Complaint: GI Complaint Time Seen by Provider: 05:06 Travel History International Travel<30 days: No Contact w/Intl Traveler<30days: No Traveled to known affect area: No History of Present Illness HPI 66-year-old female came to the emergency room because she cannot stop retching. She says she's been diagnosed with pneumonia and was discharged home on Levaquin which she has finished a course for 1 week. But she has been retching. She was seen in this emergency room couple days ago for the same complain when she had blood work and CAT scan done and they were all within normal limits. She is talking to me and suddenly in between start retching loudly but nothing but her saliva would come out. Vital signs are stable. Her neighbor is here with her. [facility] Past Medical History Narrative Medical List of her past medical, surgical, social and family history is reviewed from the nursing note. Autoimmune Disease: No Anxiety: Yes Depression: Yes High Cholesterol: Yes Chemotherapy: No Endocrine: No Genitourinary: No Immune Disorder: No Musculoskeletal: Yes (right knee, quad tendon removed, ruptured discs) Neurologic: No Reproductive: No Respiratory: Yes Radiation Therapy: No Sickle Cell Disease: No Thyroid Disease: No Tetanus Vaccination: Unknown Influenza Vaccination: No ?: Not Past Surgical History Abdominal Surgery: Yes (colon, bowel resections) AICD: No Arteriovenous Shunt: No Cardiac Surgery: No Ear Surgery: No Endocrine Surgery: No Eye Surgery: No Genitourinary Surgery: No Gynecologic Surgery: Yes (hysterectomy) Hysterectomy: Yes Insulin Pump: No Joint Replacement: No Neurologic Surgery: Yes (BACK ) Oral Surgery: Yes (teeth removed, bone removed) Pacemaker: No Thoracic Surgery: No Other Surgery: Yes Social History Alcohol Use: Yes (OCCASIONALLY) Tobacco Use: Yes (1 PPD) Substance Use: Yes (marijuana, two joints per day, daily) Allergies-Medications (Allergen,Severity, Reaction): Coded Allergies: Reglan (Verified Allergy, Severe, Hallucinations, 01/03/17) Codeine (Verified Allergy, Unknown, 01/03/17) Contrast Media (Verified Allergy, Unknown, 01/03/17) Penicillin (Verified Allergy, Unknown, 01/03/17) Comments List of her allergies reviewed from the nursing note. Reported Meds & Prescriptions Reported Meds & Active Scripts Active Protonix (Pantoprazole Sodium) 20 Mg Tab 20 Mg PO DAILY Ventolin Hfa 18 GM Inh (Albuterol Sulfate) 90 Mcg/Act Aer 2 Puff INH Q4H PRN Reported Lorazepam 1 Mg Tab 1 Mg PO Q6H PRN Citalopram (Citalopram Hydrobromide) 40 Mg Tab 40 Mg PO DAILY Narrative Medication List of her home medications reviewed from the nursing note. Review of Systems Except as stated in HPI: all other systems reviewed are Neg Physical Exam Narrative GENERAL: Awake, alert, anxious, mild distress SKIN: Focused skin assessment warm/dry. HEAD: Atraumatic. Normocephalic. EYES: Pupils equal and round. No scleral icterus. No injection or drainage. ENT: No nasal bleeding or discharge. Mucous membranes pink and moist. NECK: Trachea midline. No JVD. CARDIOVASCULAR: Regular rate and rhythm. No murmur appreciated. RESPIRATORY: No accessory muscle use. Clear to auscultation. Breath sounds equal bilaterally. GASTROINTESTINAL: Abdomen soft, non-tender, nondistended. Hepatic and splenic margins not palpable. MUSCULOSKELETAL: No obvious deformities. No clubbing. No cyanosis. No edema. NEUROLOGICAL: Awake and alert. No obvious cranial nerve deficits. Motor grossly within normal limits. Normal speech. PSYCHIATRIC: Appropriate mood and affect; insight and judgment normal. Data Data Last Documented VS Vital Signs Date Time Temp Pulse Resp B/P Pulse Ox O2 Delivery O2 Flow Rate FiO2 01/03/17 06:43 68 18 136/65 96 01/03/17 06:07 Room Air 01/03/17 04:38 98.0 Orders Ondansetron Inj (Zofran Inj) (01/03/17 05:04) Complete Blood Count With Diff (01/03/17 05:08) Comprehensive Metabolic Panel (01/03/17 05:08) Lipase (01/03/17 05:08) Urinalysis - C+S If Indicated (01/03/17 05:08) Iv Access Insert/Monitor (01/03/17 05:08) Ecg Monitoring (01/03/17 05:08) Oximetry (01/03/17 05:08) Pantoprazole Inj (Protonix Inj) (01/03/17 05:15) Sodium Chlor 0.9% 1000 Ml Inj (Ns 1000 M (01/03/17 05:08) Sodium Chloride 0.9% Flush (Ns Flush) (01/03/17 05:15) Lorazepam Inj (Ativan Inj) (01/03/17 05:45) Ondansetron Inj (Zofran Inj) (01/03/17 05:45) Labs Laboratory Tests Test 01/03/17 05:10 White Blood Count 7.7 TH/MM3 Red Blood Count 5.28 MIL/MM3 Hemoglobin 14.8 GM/DL Hematocrit 43.8 % Mean Corpuscular Volume 83.0 FL Mean Corpuscular Hemoglobin 28.1 PG Mean Corpuscular Hemoglobin 33.8 % Concent Red Cell Distribution Width 13.6 % Platelet Count 303 TH/MM3 Mean Platelet Volume 8.6 FL Neutrophils (%) (Auto) 76.3 % Lymphocytes (%) (Auto) 14.1 % Monocytes (%) (Auto) 6.6 % Eosinophils (%) (Auto) 2.0 % Basophils (%) (Auto) 1.0 % Neutrophils # (Auto) 5.8 TH/MM3 Lymphocytes # (Auto) 1.1 TH/MM3 Monocytes # (Auto) 0.5 TH/MM3 Eosinophils # (Auto) 0.2 TH/MM3 Basophils # (Auto) 0.1 TH/MM3 CBC Comment DIFF FINAL Differential Comment Urine Color YELLOW Urine Turbidity CLEAR Urine pH 6.0 Urine Specific Orange 1.024 Urine Protein TRACE mg/dL Urine Glucose (UA) NEG mg/dL Urine Ketones 10 mg/dL Urine Occult Blood TRACE Urine Nitrite NEG Urine Bilirubin NEG Urine Urobilinogen LESS THAN 2.0 MG/DL Urine Leukocyte Esterase NEG Urine RBC 2 /hpf Urine WBC 1 /hpf Urine Squamous Epithelial 2 /hpf Cells Urine Bacteria RARE /hpf Urine Hyaline Casts 4 /lpf Urine Mucus MOD /lpf Microscopic Urinalysis Comment CULT NOT INDICATED Sodium Level 138 MEQ/L Potassium Level 3.4 MEQ/L Chloride Level 104 MEQ/L Carbon Dioxide Level 23.2 MEQ/L Anion Gap 11 MEQ/L Blood Urea Nitrogen 7 MG/DL Creatinine 0.65 MG/DL Estimat Glomerular Filtration 92 ML/MIN Rate Random Glucose 120 MG/DL Calcium Level 9.1 MG/DL Total Bilirubin 0.5 MG/DL Aspartate Amino Transf 20 U/L (AST/SGOT) Alanine Aminotransferase 19 U/L (ALT/SGPT) Alkaline Phosphatase 79 U/L Total Protein 7.1 GM/DL Albumin 3.4 GM/DL Lipase 217 U/L [facility] Medical Decision Making Medical Screen Exam Complete: Yes Emergency Medical Condition: Yes Medical Record Reviewed: Yes Differential Diagnosis Gastritis, dehydration, anxiety Narrative Course 6:23 AM blood test results of back and within normal limits. She had a CAT scan done couple days ago and hence I did not order any radiologic test today. Patient had received Zofran initially. At one point she was nonstop retching and I went back to check on her and once again there was no emesis. I had to give her Ativan 1 mg which has calmed her down. I will discharge her home. Procedures EKG Prior to Arrival: No Diagnosis Primary Impression: Acute gastritis Qualified Code: K29.00 - Acute gastritis, presence of bleeding unspecified, unspecified gastritis type Additional Impression: Anxiety Referrals: Primary Care Physician 2 days Additional Instructions: Please return to the ER if the condition worsens or any other new concerns. Otherwise follow-up with your primary care in couple days. Take the medication as per the prescription direction. Med/Other Pt SpecificInfo: Prescription(s) given Scripts Pantoprazole (Protonix)20 Mg Tab20 Mg PO DAILY #30 TAB Ref 0 Prov:Marry Monson MD 01/03/17 Disposition: 01 DISCHARGE HOME Condition: Stable Marry Monson MD Jan 03, 2017 05:07
[2017-01-03] MEDS ORDERED: PANTOPRAZOLE SODIUM 40 MG VIAL IVP ONE (05:15)
[2017-01-03] MEDS ORDERED: SODIUM CHLORIDE 0.9% FLUSH 10 ML FLUSH IV FLUSH PRN (05:15)
[2017-01-03 05:27] LABS: AUTOMATED NEUTROPHIL # 5.8 TH/MM3 (1.8-7.7); BASOPHIL # 0.1 TH/MM3 (0-0.2); EOSINOPHIL # 0.2 TH/MM3 (0-0.4); HEMATOCRIT 43.8 % (35.0-46.0); HEMO FLAGS DIFF FINAL; LYMPH % 14.1 % (9.0-44.0); LYMPHOCYTE # 1.1 TH/MM3 (1.0-4.8); MEAN CORPUSCULAR HEMOGLOBIN 28.1 PG (27.0-34.0); MEAN CORPUSCULAR HGB CONC 33.8 % (32.0-36.0); MONO % 6.6 % (0.0-8.0); NEUT % 76.3 % (16.0-70.0); PLATELET COUNT 303 TH/MM3 (150-450); RED BLOOD COUNT 5.28 MIL/MM3 (4.00-5.30); RED CELL DISTRIBUTION WIDTH 13.6 % (11.6-17.2); WHITE BLOOD COUNT 7.7 TH/MM3 (4.0-11.0)
[2017-01-03 05:33] LABS: BACTERIA, URINE RARE /hpf; BLOOD, URINE TRACE (NEG); GLUCOSE,URINE NEG (NEG); HYALINE CAST, URINE 4 /lpf (RARE); KETONE, URINE 10 mg/dL (NEG); MUCUS URINE MOD /lpf (OCC); NITRITE,URINE NEG (NEG); SQUAMOUS EPITHELIAL CELL URINE 2 /hpf (0-5); URINE COLOR YELLOW (YELLW/STRAW)
[2017-01-03 05:35] LABS: COMMENT (UR) CULT NOT INDICATED; CULTURE IF INDICATED CULT NOT INDICATED
[2017-01-03] MEDS ORDERED: ONDANSETRON HCL 4 MG/2 ML VIAL IV PUSH ONE (05:45)
[2017-01-03] MEDS ORDERED: LORazepam 2 MG/ML VIAL IV PUSH ONE (05:45)
[2017-01-03 05:59] LABS: ALT (GPT) 19 U/L (10-53); ANION GAP 11 MEQ/L (5-15); AST (GOT) 20 U/L (15-37); BICARBONATE 23.2 MEQ/L (21.0-32.0); BLOOD UREA NITROGEN 7 MG/DL (7-18); CHLORIDE 104 MEQ/L (98-107); GLOMERULAR FILTRATION RATE 92 ML/MIN (>89); POTASSIUM 3.4 MEQ/L (3.5-5.1); SODIUM (NA) 138 MEQ/L (136-145)
[2017-01-03 06:02] LABS: ALKALINE PHOSPHATASE 79 U/L (45-117); TOTAL BILIRUBIN ADULT 0.5 MG/DL (0.2-1.0)
[2017-01-03 06:07] VITALS: BP 149/67; PULSE 88; RESP 18; O2SAT 96
[2017-01-03] MEDS ORDERED: PANT20 PO (06:26)
[2017-01-03 06:43] VITALS: BP 136/65
== END 2017-01-03 06:56 | disposition home or self-care (01) ==
LOC: NEPC 04:37
DX: K29.00 Acute gastritis without bleeding (principal); F41.9 Anxiety disorder, unspecified; F32.9 Major depressive disorder, single episode, unspecified; E78.00 Pure hypercholesterolemia, unspecified; Z79.899 Other long term (current) drug therapy; Z88.5 Allergy status to narcotic agent; Z88.0 Allergy status to penicillin
CPT/HCPCS: 80053; 81001; 83690; 85025; 96374; 96375; 99284; C9113; J2060; J2405; J7030